=== PATIENT | female | born 1955 | race American Indian/Alaskan Native ===

== ENCOUNTER 2016-09-22 08:09 | Outpatient (CLI) | payer OTHER ==
--- NOTE | 2016-09-22 09:03 | Mammography Report ---
The patient had this exam on the date indicated above. It was indicated to us that previous films should be available that would be helpful in providing optimal evaluation with regards to the current study. A final report will be issued, pending receipt of the prior study. CAD was utilized.
== END 2016-09-22 08:10 | disposition home or self-care (01) ==
LOC: MAMMO 08:09
PROVIDERS: ATTEND Obstetrics & Gynecology
DX: Z12.31 Encounter for screening mammogram for malignant neoplasm of breast (principal)
CPT/HCPCS: 77067; G0202

== ENCOUNTER 2016-11-25 10:11 | Outpatient (CLI) | payer OTHER ==
--- NOTE | 2016-11-25 12:00 | Ultrasound Report ---
LEFT DIGITAL DIAGNOSTIC MAMMOGRAM and LEFT BREAST ULTRASOUND: 11/25/16 10:11:00 CLINICAL: Recalled for asymmetry. COMPARISON:09/22/16 screening FINDINGS: Spot magnification MLO and CC views were performed for further evaluation of an upper outer asymmetry. A low density oval circumscribed density persists. Ultrasound of the outer left breast was performed and demonstrated no mass, cyst or shadowing. 2 benign lymph nodes with central fat at 1 o'clock 11 cm from the nipple measure 1.4 x 0.7 x 1.2 cm and 1.5 x 0.6 x 0.7 cm. IMPRESSION: 1. Negative left mammogram and left breast ultrasound.2. Negative right mammogram. BI-RADS CATEGORY: 1 -- Negative RECOMMENDATION: Routine mammographic screening in one year. ACR BI-RADS MAMMOGRAPHIC CODES: 0 = Needs additional imaging evaluation; 1 = Negative; 2 = Benign; 3 = Probably benign; 4 = Suspicious; 5 = Malignant; 6 = Known biopsy-proven malignancy COMMENT: 1. Dense breast tissue, i.e., adenosis, fibrocystic changes, etc., may obscure an underlying neoplasm. 2. Approximately 10% of cancers are not detected with mammography. 3. A negative mammography report should not delay biopsy if a clinically suspicious mass is present. COMMENT: Patient follow-up letters are generated via our [employer] application.
== END 2016-11-25 10:12 | disposition home or self-care (01) ==
LOC: MAMMO 10:11
PROVIDERS: ATTEND Obstetrics & Gynecology
DX: R92.8 Other abnormal and inconclusive findings on diagnostic imaging of breast (principal)
CPT/HCPCS: 76642; G0206

== ENCOUNTER 2017-11-05 10:17 | Outpatient (CLI) | payer OTHER ==
--- NOTE | 2017-11-05 11:10 | Mammography Report ---
Screening mammogram: Routine views compared to prior exams in 2017. The left asymmetry described at that time is unchanged as is the remainder of the breast pattern which is generally heterogeneous and symmetrically distributed fibroglandular tissue. No suspicious findings. CAD used. Impression: Stable exam. Recommendation: Annual mammogram followup. BI-RADS CATEGORY: 2 = Benign ACR BI-RADS MAMMOGRAPHIC CODES: 0 = Needs additional imaging evaluation; 1 = Negative; 2 = Benign; 3 = Probably benign; 4 = Suspicious; 5 = Malignant; 6 = Known biopsy-proven malignancy COMMENT: 1. Dense breast tissue, i.e., adenosis, fibrocystic changes, etc., may obscure an underlying neoplasm. 2. Approximately 10% of cancers are not detected with mammography. 3. A negative mammography report should not delay biopsy if a clinically suspicious mass is present.
== END 2017-11-05 10:18 | disposition home or self-care (01) ==
LOC: MAMMO 10:17
PROVIDERS: ATTEND Obstetrics & Gynecology
DX: Z12.31 Encounter for screening mammogram for malignant neoplasm of breast (principal)
CPT/HCPCS: 77067